=== PATIENT | female | born 1995 | race Caucasian/White ===

== ENCOUNTER 2019-04-10 09:57 | Emergency (ER) | payer OTHER ==
[2019-04-10] MEDS ORDERED: Sodium Chloride 0.9% 1,000 ML IV ONE (10:38)
[2019-04-10 10:40] VITALS: RESP 20; TEMP 98.5; O2SAT 100
[2019-04-10 10:45] LABS: HCG,QUALITATIVE URINE NEGATIVE (NEGATIVE); SQUAMOUS EPITHIAL 3 /hpf (0-5); URINE BACTERIA FEW (<OCC); URINE BILIRUBIN NEGATIVE (NEGATIVE); URINE BLOOD 2+ (NEGATIVE); URINE CLARITY Hazy (Clear); URINE COLOR Amber (YELLOW); URINE GLUCOSE (UA) NORMAL (Normal); URINE LEUKOCYTE ESTERASE NEG Leu/uL (Negative); URINE PROTEIN NEGATIVE (NEGATIVE)
[2019-04-10] MEDS ORDERED: Sodium Chloride 0.9% 1,000 ML ONE (11:01)
[2019-04-10 11:22] LABS: BASO % 1.1 % (0.0-2.0); EOS # 0.1 K/uL (0.0-0.7); EOS % 1.3 % (0.0-4.0); HEMOGLOBIN 13.5 g/dL (11.0-16.0); LYMPH # 0.8 K/uL (1.0-4.3); LYMPH % 18.6 % (20.0-40.0); MEAN CELL VOLUME 90.4 fL (81.0-99.0); MEAN CORPUSCULAR HEMOGLOBIN 30.9 pg (27.0-31.0); MEAN CORPUSCULAR HGB CONC 34.2 g/dL (33.0-37.0); MEAN PLATELET VOLUME 7.8 fL (7.2-11.7); MONO # 0.1 K/uL (0.0-0.8); MONO % 3.4 % (0.0-10.0); NEUT # 3.1 K/uL (1.8-7.0); NEUT % 75.6 % (50.0-75.0); RBC 4.36 Mil/uL (3.80-5.20); RED CELL DISTRIBUTION WIDTH 12.4 % (11.5-14.5); WHITE BLOOD COUNT 4.1 K/uL (4.8-10.8)
[2019-04-10 11:48] LABS: ALB/GLOB RATIO 1.2 (1.0-2.1); ALBUMIN 4.4 g/dL (3.5-5.0); ALT/SGPT 11 U/L (9-52); AST/SGOT 24 U/L (14-36); BLOOD UREA NITROGEN 9 mg/dL (7-17); CALCIUM 9.3 mg/dl (8.6-10.4); GFR NON-AFRICAN AMERICAN > 60
[2019-04-10] MEDS ORDERED: Iohexol 240 (50 ml) PO STA (12:00)
[2019-04-10] MEDS ORDERED: Iohexol 240 (50 ml) ONE (12:12)
[2019-04-10 12:20] VITALS: BP 110/77; PULSE 94
--- NOTE | 2019-04-10 12:32 | C.PDOC ---
History Of Present Illness 23 year old female presents to the ED complaining of multiple episodes of non- bilious vomiting and lower abdominal cramping that began today. Reports she was seen at an Urgent Care facility 3 days ago for UTI and prescribed Macrobid. Reports she took one dose yesterday. States she has been fasting for the past few days. Notes mild dysuria, but denies any hematuria, fever, chest pain, chills, shortness of breath, or any other complaints. Time Seen by Provider: 04/10/19 10:16 Chief Complaint (Nursing): GI Problem History Per: Patient History/Exam Limitations: no limitations Onset/Duration Of Symptoms: Days Current Symptoms Are (Timing): Still Present Location Of Pain/Discomfort: Suprapubic Past Medical History Reviewed: Historical Data, Nursing Documentation, Vital Signs Vital Signs: Last Vital Signs Temp 98.5 F 04/10/19 12:16 Pulse 94 H 04/10/19 12:16 Resp 20 04/10/19 12:16 BP 110/77 04/10/19 12:16 Pulse Ox 100 04/10/19 12:16 Primary Care Provider: Non [facility] Provider, - Medical History PMH: No Chronic Diseases Surgical History: No Surg Hx Family History: States: No Known Family Hx - Social History Hx Alcohol Use: No Hx Substance Use: No - Immunization History Hx Tetanus Toxoid Vaccination: No Hx Influenza Vaccination: No Hx Pneumococcal Vaccination: No Review Of Systems Except As Marked, All Systems Reviewed And Found Negative. Constitutional: Negative for: Fever, Chills Cardiovascular: Negative for: Chest Pain Respiratory: Negative for: Shortness of Breath Gastrointestinal: Positive for: Vomiting, Abdominal Pain. Negative for: Diarrhea, Constipation Genitourinary: Positive for: Dysuria. Negative for: Hematuria Musculoskeletal: Negative for: Back Pain Physical Exam - Physical Exam Appears: Non-toxic, No Acute Distress Skin: Warm, Dry, No Rash Head: Normacephalic Eye(s): bilateral: Normal Inspection Nose: Normal Oral Mucosa: Moist Neck: Supple Chest: Symmetrical Cardiovascular: Rhythm Regular Respiratory: Normal Breath Sounds, No Rales, No Rhonchi, No Wheezing Gastrointestinal/Abdominal: Soft, Tenderness (lower abdominal tenderness, left worse than right ), No Distention, No Guarding, No Rebound Back: No CVA Tenderness Neurological/Psych: Oriented x3, Normal Speech Gait: Steady ED Course And Treatment - Laboratory Results Result Diagrams: 04/10/19 11:13 04/10/19 11:13 Lab Results: Total Bilirubin 0.5 mg/dL (0.2-1.3) 04/10/19 11:13 AST 24 U/L (14-36) 04/10/19 11:13 ALT 11 U/L (9-52) 04/10/19 11:13 Alkaline Phosphatase 56 U/L (38-126) 04/10/19 11:13 Total Protein 8.0 g/dL (6.3-8.3) 04/10/19 11:13 Albumin 4.4 g/dL (3.5-5.0) 04/10/19 11:13 Globulin 3.6 gm/dL (2.2-3.9) 04/10/19 11:13 Albumin/Globulin Ratio 1.2 (1.0-2.1) 04/10/19 11:13 Urine Color Leandra (YELLOW) 04/10/19 10:29 Urine Clarity Hazy (Clear) 04/10/19 10:29 Urine pH 6.0 (5.0-8.0) 04/10/19 10:29 Ur Specific [place] 1.015 (1.003-1.030) 04/10/19 10:29 Urine Protein Negative mg/dL (NEGATIVE) 04/10/19 10:29 Urine Glucose (UA) Normal mg/dL (Normal) 04/10/19 10:29 Urine Ketones 1+ mg/dL (NEGATIVE) H 04/10/19 10:29 Urine Blood 2+ (NEGATIVE) H 04/10/19 10:29 Urine Nitrate Negative (NEGATIVE) 04/10/19 10:29 Urine Bilirubin Negative (NEGATIVE) 04/10/19 10:29 Urine Urobilinogen 2.0 mg/dL (0.2-1.0) H 04/10/19 10:29 Ur Leukocyte Esterase Neg Violeta/uL (Negative) 04/10/19 10:29 Urine WBC (Auto) 4 /hpf (0-5) 04/10/19 10:29 Urine RBC (Auto) 16 /hpf (0-3) H 04/10/19 10:29 Ur Squamous Epith Cells 3 /hpf (0-5) 04/10/19 10:29 Urine Bacteria Few (<OCC) H 04/10/19 10:29 Urine HCG, Qual Negative (NEGATIVE) 04/10/19 10:29 Urine HCG, Qual Negative (NEGATIVE) 04/10/19 10:29 O2 Sat by Pulse Oximetry: 100 (RA) Pulse Ox Interpretation: Normal Medical Decision Making Medical Decision Making: Plan - CT abd/pel - Zofran 4mg PO - IV fluids - HCG - UA The patient declines to have further medical evaluation and treatment and wishes to leave the Emergency Department. This action is against my medical advice to the patient and with informed refusal. The patient was told that evaluation and treatment are necessary and a full explanation of the rationale was given. The risks of leaving were explained to the patient and include, but are not limited to, worsening of known or currently unknown conditions, permanent disability and from undiagnosed or untreated conditions. Based on my conversations with the patient, the patient has the capacity to make this informed decision and understands the clinical situation and my explanation of the risks of leaving. The patient voluntarily accepts these risks and a signed AMA form documenting our conversation was obtained. The patient was given the opportunity to ask questions and reconsider. The patient was encouraged to return to the Emergency Department at any time for further evaluation. Disposition - Disposition Disposition: AGAINST MEDICAL ADVICE Disposition Time: 12:30 Condition: UNKNOWN Additional Instructions: You were discharged against medical advice. Please follow up with your PMD in 2- 3 days. Return to ED for any worsening pain, fever, or concerning symptoms. Instructions: Acute Abdomen (Belly Pain), Adult (DC), Nausea and Vomiting, Adult (DC) Forms: [employer] (Scottish) - POA Present On Arrival: None - Clinical Impression Clinical Impression: Abdominal pain - PA / DOCUMENT DESIGN SPECIALIST / Resident Statement MD/DO has reviewed & agrees with the documentation as recorded. - Scribe Statement The provider has reviewed the documentation as recorded by the Scribe Cheri Mena All medical record entries made by the Shoaib were at my direction and personally dictated by me. I have reviewed the chart and agree that the record accurately reflects my personal performance of the history, physical exam, medical decision making, and the department course for this patient. I have also personally directed, reviewed, and agree with the discharge instructions and disposition.
== END 2019-04-10 12:49 | disposition left against medical advice (07) ==
LOC: C.ER 09:57
DX: R10.30 Lower abdominal pain, unspecified (principal)
CPT/HCPCS: 80053; 81001; 84703; 85025; 96360; 99285; J7030